=== PATIENT | female | born 1965 | race Caucasian/White ===

== ENCOUNTER → 2017-07-28 | Outpatient (CLI) | payer OTHER ==
[~2017-07-28] MED LIST: KLONOPIN TAB 00.5 MG PO; NEURONTIN 300300 MG PO; PERCOCET 5-3251 EACH PO; XARELTO10 MG PO
== END ==
LOC: RAD 10:54
DX: I10 Essential (primary) hypertension (principal)
CPT/HCPCS: 72050; 72072; 72110